=== PATIENT | male | born 1960 | race Caucasian/White ===

== ENCOUNTER 2018-07-25 17:10 | Inpatient (IN) | payer MEDICAID ==
--- NOTE | 2018-07-25 17:29 | EDPHY ---
General Time Seen by Provider: 07/25/18 17:14 Narrative: CLINICAL IMPRESSION: Congestive heart failure, shortness of breath ASSESSMENT/PLAN: 58-year-old male with a past medical history of nonischemic cardiomyopathy with reduced left ventricular systolic function and an EEG action fraction of 40 % presents to the emergency department after running out of his Lasix 2 weeks ago and experiencing increased shortness of breath and oxygen needed. Patient reports using 4 L of 0 2 at night but has been using this during the day over the last several days. He reports increased lower extremity edema, dyspnea on exertion and shortness of breath. He has no complaints of chest pain in the ED. No calf asymmetry erythema or warmth. Low clinical suspicion for DVT. No pleuritic chest discomfort. EKG read and interpreted by Dr. White, normal sinus rhythm, no acute ST or T-wave changes. Chest x-ray showing cardiomegaly with changes consistent with congestive heart failure. Elevated BNP. No renal insufficiency or electrolyte imbalance. No leukocytosis. Troponin negative. Patient was given IV Lasix in the emergency department. Case discussed with Dr. White and hospitalist for admission. He is established with Cardiology and CT surgery given moderate to severe aortic regurgitation but does not wish to pursue valve replacement. He was stabilized in the ED prior to admission. DIFFERENTIAL DX: Differential diagnosis includes but not limited to myocardial ischemia, CHF exacerbations, pulmonary embolus, chest wall pain, pleural inflammation, musculoskeletal chest wall pain, aortic aneurysm, and pulmonary infectious causes. ED PROCEDURES: See lab and/or imaging results below ED COURSE: 5:20 p.m.: Patient seen and assessed by myself. Currently on 4 L O2 by nasal cannula. No acute distress, no obvious significant respiratory difficulty. Plan for IV, labs, chest x-ray, EKG, cardiac enzymes, admission. 5:30 p.m.: Review of patient's most recent admission records from June of 2015 reveal a [facility] echo showing moderate to severe aortic insufficiency with dilated aortic arch, ejection fraction of 40%, severe aortic regurgitation and pulmonary hypertension. At the time of this admission note it was recommended that patient consider CT surgery consultation and note suggest the patient went home to think about this. He also appears to have had a cardiac catheterization in 2016 revealing minimal coronary luminal irregularities and was started on atorvastatin and baby aspirin daily. Cardiac diagnosis of nonischemic cardiomyopathy with reduced left ventricular systolic function. 6:20 p.m.: Lab studies show an elevated BNP. Chest x-ray suggestive of CHF. No renal insufficiency or significant electrolyte imbalance. EKG reviewed with Dr. White. Patient reports chest pain is only when he is exerting himself up the stairs and "can tell his pulse ox is low". He has no chest pain at rest and no pleuritic discomfort. He is currently chest pain-free. Troponin negative. Case reviewed with Dr. Abbasi for admission. Patient in agreement to this plan. CHIEF COMPLAINT: Shortness of breath HPI: 58-year-old male with past medical history of CHF, depression, chronic arthritis and degenerative disc disease presents to the emergency department complaining of shortness of breath x2 weeks after running out of his Lasix. Patient states he had not seen the prescribing physician in some time and therefore refills were not provided. He reports lower extremity edema, abdominal distention, shortness of breath and chest pain. He has home oxygen he normally wears only at night at 4 L but has been wearing this during the day. He reports his home pulse oximetry was reading as low as 70. He also reports that he sees a kidney doctor for "kidney failure" but is unable to tell me what his baseline creatinine is. He states he is still making urine although it is dark in estimates he has urinated 2-3 times today. He has not weighed himself. He does not report prior cardiac history including arrhythmia or previous [place]. He has been taking his other medication compliantly. He is a poor historian, cannot tell me if he has had an echocardiogram, cardiac catheterization, or because of his CHF. PAST MEDICAL HISTORY: CHF, degenerative disc disease, osteoarthritis, chronic depression See nurse/triage notes for additional history if applicable Pertinent Past Surgical History: None reported Family History: Noncontributory Social History: Lives alone, nonsmoker REVIEW OF SYSTEMS: All other systems negative Constitutional: No fever, no chills, appetite change. Eyes: No discharge, vision change ENT: No sore throat, congestion, ear pain. Cardiovascular: No chest pain, no palpitations. Respiratory: No cough, no shortness of breath. Gastrointestinal: No abdominal pain, no vomiting, diarrhea. Genitourinary: No hematuria, dysuria, flank pain, pelvic pain Musculoskeletal: No back pain, joint swelling, joint pain, myalgias. Skin: No rashes, color change. Neurological: No headache, dizziness, weakness. PHYSICAL EXAM: General Appearance: Alert, oriented, appropriate, overweight, cooperative, NAD , well hydrated, non-toxic appearing, tachycardic, tachypneic, hypertension, saturating 91% on 4 L, no hypoxia. HEENT: Oropharynx clear is no erythema or exudates, no tonsillar hypertrophy or asymmetry. Dentition without abnormality. Neck: Supple, nontender, no lymphadenopathy, no midline pain, FROM, no meningismus, no JVD. Respiratory: There are no retractions, lungs are clear to auscultation. Cardiac: Regular rate and rhythm, no murmurs or gallops. Gastrointestinal: Abdomen is soft, distended, nontender, bowel sounds normal, no guarding or focal peritoneal findings. Neurological: [ Alert and oriented x 3 Skin: Warm, dry, no rashes, no nodules on palpation. Musculoskeletal: [Extremities are symmetrical, full range of motion, no asymmetric calf tenderness erythema or warmth, no pitting edema although patient reports swelling to both lower extremities Psychiatric: Patient is oriented X 3, there is no agitation. MEDICAL DECISION MAKING: Patient was seen independently. Secondary supervising physician at time of evaluation was Dr White . Diagnosis: Congestive heart failure, shortness of breath . New, requires workup Summary: See Assessment and Plan for summary of ED visit Clinical lab tests: ordered / reviewed. Independent visualization of images, tracing, or specimens: Yes. Decision to obtain medical records or history from someone other than the patient: No Review / Summarize previous medical records: Reviewed past records Discussed patient with another provider: Dr. White Patient Progress: Improved, stable for discharge. - Diagnostics Imaging Results: Imaging Impressions Chest X-Ray 07/25/18 17:26 Impression: Mild cardiomegaly with possible early congestive heart failure. A component of underlying bronchitis and interstitial pneumonitis cannot be excluded. - History Smoking Status: Former smoker - Objective Vital Signs: Initial Vital Signs Temperature (C) 37 C 07/25/18 17:14 Heart Rate 110 H 07/25/18 17:14 Respiratory Rate 25 H 07/25/18 17:14 Blood Pressure 184/110 H 07/25/18 17:14 O2 Sat (%) 91 L 07/25/18 17:14 O2 Delivery Mode Nasal Cannula O2 (L/minute) 4 Allergies/Adverse Reactions: No Known Allergies Allergy (Verified 07/25/18 18:46) Home Medications: Medication Instructions Recorded Omeprazole 20 mg PO DAILY PRN 06/13/15 Sertraline HCl [Zoloft 100mg (*)] 100 mg PO DAILY 06/13/15 Atorvastatin Calcium [Lipitor 20 20 mg PO DAILY #30 tab 06/17/15 mg (*)] Lisinopril [Zestril 10 mg (*)] 10 mg PO DAILY #30 tab 06/17/15 Metoprolol Succinate Xr [Toprol Xl 50 mg PO DAILY #30 tab 06/17/15 50 mg (*)] Acetaminophen [Tylenol 325mg (*)] 325 - 650 mg PO Q6 PRN 07/25/18 Albuterol [Ventolin Hfa Inhaler] 1 - 2 puffs IH Q4-6PRN PRN 07/25/18 Aspirin EC [Aspirin EC 81 mg (*)] 81 mg PO DAILY 07/25/18 Furosemide [Lasix 40 MG (*)] 40 mg PO DAILY 07/25/18 Herbals/Supplements -Info Only 1 ea PO DAILY 07/25/18 Potassium Cl [Klor-Con 20 meq (*)] 20 meq PO DAILY 07/25/18 Laboratory Results: Laboratory Results 07/25/18 17:22 07/25/18 17:15 07/25/18 07/25/18 17:22 17:15 WBC 6.00 10^3/uL 10^3/uL (3.80-9.50) RBC 4.78 10^6/uL 10^6/uL (4.40-6.38) Hgb 12.7 g/dL L g/dL (13.7-17.5) Hct 40.1 % % (40.0-51.0) MCV 83.9 fL fL (81.5-99.8) MCH 26.6 pg L pg (27.9-34.1) MCHC 31.7 g/dL L g/dL (32.4-36.7) RDW 15.3 % H % (11.5-15.2) Plt Count 150 10^3/uL 10^3/uL (150-400) MPV 9.1 fL fL (8.7-11.7) Neut % (Auto) 75.0 % H % (39.3-74.2) Lymph % (Auto) 13.0 % L % (15.0-45.0) [place] % (Auto) 7.5 % % (4.5-13.0) Eos % (Auto) 2.0 % % (0.6-7.6) Baso % (Auto) 0.8 % % (0.3-1.7) Nucleat RBC Rel Count 0.0 % % (0.0-0.2) Absolute Neuts (auto) 4.50 10^3/uL 10^3/uL (1.70-6.50) Absolute Lymphs (auto) 0.78 10^3/uL L 10^3/uL (1.00-3.00) Absolute Monos (auto) 0.45 10^3/uL 10^3/uL (0.30-0.80) Absolute Eos (auto) 0.12 10^3/uL 10^3/uL (0.03-0.40) Absolute Basos (auto) 0.05 10^3/uL 10^3/uL (0.02-0.10) Absolute Nucleated RBC 0.00 10^3/uL 10^3/uL (0-0.01) Immature Gran % 1.7 % H % (0.0-1.1) Immature Gran # 0.10 10^3/uL 10^3/uL (0.00-0.10) Sodium 138 mEq/L mEq/L (135-145) Potassium 4.5 mEq/L mEq/L (3.5-5.2) Chloride 104 mEq/L mEq/L (97-110) Carbon Dioxide 21 mEq/l L mEq/l (22-31) Anion Gap 13 mEq/L mEq/L (6-14) BUN 14 mg/dL mg/dL (7-23) Creatinine 1.2 mg/dL mg/dL (0.7-1.3) Estimated GFR > 60 Glucose 120 mg/dL H mg/dL (70-100) Calcium 9.0 mg/dL mg/dL (8.5-10.4) NT-Pro-B Natriuret Pep 1390 pg/mL H pg/mL (0-125) Medications Given: Aspirin Buffered (Aspirin Ec) 81 mg PO DAILY [facility] Stop: 01/21/19 21:44 Last Admin: 07/25/18 22:34 Dose: 81 mg Atorvastatin Calcium (Lipitor) 20 mg PO DAILY [facility] Stop: 01/21/19 21:44 Last Admin: 07/25/18 22:34 Dose: 20 mg Lisinopril (Zestril) 10 mg PO DAILY [facility] Stop: 01/21/19 21:44 Last Admin: 07/25/18 22:34 Dose: 10 mg Metoprolol Succinate (Toprol Xl) 50 mg PO DAILY [facility] Stop: 01/21/19 21:44 Last Admin: 07/25/18 22:34 Dose: 50 mg Pantoprazole Sodium (Protonix) 40 mg PO DAILY PRN PRN Reason: Dyspepsia Stop: 01/21/19 21:07 Last Admin: 07/25/18 22:35 Dose: 40 mg Potassium Chloride (Klor-Con) 20 meq PO DAILY [facility] Stop: 01/21/19 21:44 Last Admin: 07/25/18 22:34 Dose: 20 meq Sertraline HCl (Zoloft) 100 mg PO DAILY [facility] Stop: 01/21/19 21:44 Last Admin: 07/25/18 22:34 Dose: 100 mg Discontinued Medications Furosemide (Lasix Injection) 40 mg IVP [facility] ONE Stop: 07/25/18 18:25 Last Admin: 07/25/18 18:32 Dose: 40 mg Departure - Departure Disposition: [facility] Clinical Impression: Congestive heart failure, Shortness of breath Condition: Fair
[2018-07-25 17:39] LABS: PLATELET COUNT 150 10^3/uL (150-400)
--- NOTE | 2018-07-25 18:23 | CPEKG ---
Test Reason : OPEN Blood Pressure : / mmHG Vent. Rate : 092 BPM Atrial Rate : 092 BPM P-R Int : 184 ms QRS Dur : 096 ms QT Int : 389 ms P-R-T Axes : 051 065 021 degrees QTc Int : 482 ms Sinus rhythm Borderline T abnormalities, anterior leads Borderline prolonged QT interval Confirmed by Sheryl Mendoza ([id number]) on 07/25/2018 6:23:22 PM Referred By: SHERYL MENDOZA Confirmed By:Sheryl Mendoza
[2018-07-25] MEDS ORDERED: FUROSEMIDE 40 MG/4 ML VIAL IVP ONE (18:24)
--- NOTE | 2018-07-25 19:41 | PDGENHP ---
History and Physical - Chief Complaint sob/increased o2 need/out of meds - History of Present Illness 58 yo M with PMH of NICM with most recent EF of 65% (previously 40) as well as VHD, moderate to severe AI, and chronic hypoxic respiratory failure presenting with increased sob, increased o2 needs, leg swelling and exertional chest pain for the last couple of weeks at least. Patient is a poor historian, but reports that he has not followed up with any of his doctors for quite some time, so long in fact that his PCP refused to refill his lasix until he came to see her. He did not do that and so has been out of lasix as well as his other medications for at least the last 2 weeks. He states he has not followed up with cardiology in a 'long time', though there is an echo report from Dr. Monzon from 08/2017. He notes that since being off of the lasix, his legs have been more swollen and he has been more sob. He has begun using oxygen at 4L during the day as well as at night and has seen his o2 as low as the 70s on RA. He has had chest pain intermittently that has been worsening recently. He states it is mostly right after he has been walking and he will notice it when he sits down, it has not been severe but he did not have it at all previously. He denies fevers or chills, cough or sputum production. He does wake up with more phlegm than normal and has wondered if he might have COPD. History Information - Allergies/Home Medication List Allergies/Adverse Reactions: No Known Allergies Allergy (Verified 07/25/18 18:46) Home Medications: Omeprazole 20 mg PO DAILY PRN 06/13/15 [Last Taken 07/24/18] Sertraline HCl [Zoloft 100mg (*)] 100 mg PO DAILY 06/13/15 [Last Taken 07/24/18] Acetaminophen [Tylenol 325mg (*)] 325 - 650 mg PO Q6 PRN 07/25/18 [Last Taken Unknown] Albuterol [Ventolin Hfa Inhaler] 1 - 2 puffs IH Q4-6PRN PRN 07/25/18 [Last Taken Unknown] Aspirin EC [Aspirin EC 81 mg (*)] 81 mg PO DAILY 07/25/18 [Last Taken 07/24/18] Furosemide [Lasix 40 MG (*)] 40 mg PO DAILY 07/25/18 [Last Taken 07/11/18] Herbals/Supplements -Info Only 1 ea PO DAILY 07/25/18 [Last Taken 07/24/18] Potassium Cl [Klor-Con 20 meq (*)] 20 meq PO DAILY 07/25/18 [Last Taken 07/24/18 ] I have personally reviewed and updated: family history, medical history, social history, surgical history - Past Medical History GERD, hypertension, hyperlipidemia, psychiatric history (depression, anxiety, ptsd, hx of SA) Additional medical history: VHD: moderate to severe aortic insufficiency. ascending aortic aneurysm. bicuspid aortic valve. NICM--EF previously 40%, improved to 65% 08/2017. gastric ulcer - Surgical History Additional surgical history: tonsillectomy. orthopedic surgery - Family History Positive for: non-pertinent - Social History Smoking Status: Former smoker Alcohol Use: Other (previously heavy) Drug Use: None Additional social history: lives independently, previously worked as a combo welder now on disability, has 2 kids, Review of Systems Review of Systems: ROS: 10pt was reviewed & negative except for what was stated in HPI & below Physical Exam Physical Exam: Temp Pulse Resp BP Pulse Ox 37.6 C 82 16 144/82 H 92 07/25/18 18:23 07/25/18 19:22 07/25/18 19:22 07/25/18 19:22 07/25/18 19:22 O2 (L/minute) 4 Constitutional: chronically ill appearing, obese Eyes: PERRL, anicteric sclera Ears, Nose, Mouth, Throat: moist mucous membranes, hearing normal Cardiovascular: regular rate and rhythym, systolic murmur, edema Respiratory: reduced air movement, inspiratory crackles, No no respiratory distress Gastrointestinal: normoactive bowel sounds, soft, non-tender abdomen Genitourinary: no bladder tenderness Skin: warm, normal color Musculoskeletal: full muscle strength Neurologic: AAOx3 Psychiatric: interacting appropriately, not anxious, not encephalopathic Lab Data & Imaging Review 07/25/18 17:22 07/25/18 17:15 WBC 6.00 10^3/uL (3.80-9.50) 07/25/18 17:22 RBC 4.78 10^6/uL (4.40-6.38) 07/25/18 17:22 Hgb 12.7 g/dL (13.7-17.5) L 07/25/18 17:22 Hct 40.1 % (40.0-51.0) 07/25/18 17:22 MCV 83.9 fL (81.5-99.8) 07/25/18 17:22 MCH 26.6 pg (27.9-34.1) L 07/25/18 17:22 MCHC 31.7 g/dL (32.4-36.7) L 07/25/18 17:22 RDW 15.3 % (11.5-15.2) H 07/25/18 17:22 Plt Count 150 10^3/uL (150-400) 07/25/18 17:22 MPV 9.1 fL (8.7-11.7) 07/25/18 17:22 Neut % (Auto) 75.0 % (39.3-74.2) H 07/25/18 17:22 Lymph % (Auto) 13.0 % (15.0-45.0) L 07/25/18 17: [place] % (Auto) 7.5 % (4.5-13.0) 07/25/18 17: Eos % (Auto) 2.0 % (0.6-7.6) 07/25/18 17: Baso % (Auto) 0.8 % (0.3-1.7) 07/25/18 17: Nucleat RBC Rel Count 0.0 % (0.0-0.2) 07/25/18 17: Absolute Neuts (auto) 4.50 10^3/uL (1.70-6.50) 07/25/18 17:22 Absolute Lymphs (auto) 0.78 10^3/uL (1.00-3.00) L 07/25/18 17: Absolute Monos (auto) 0.45 10^3/uL (0.30-0.80) 07/25/18 17:22 Absolute Eos (auto) 0.12 10^3/uL (0.03-0.40) 07/25/18 17:22 Absolute Basos (auto) 0.05 10^3/uL (0.02-0.10) 07/25/18 17:22 Absolute Nucleated RBC 0.00 10^3/uL (0-0.01) 07/25/18 17:22 Immature Gran % 1.7 % (0.0-1.1) H 07/25/18 17:22 Immature Gran # 0.10 10^3/uL (0.00-0.10) 07/25/18 17:22 Sodium 138 mEq/L (135-145) 07/25/18 17:15 Potassium 4.5 mEq/L (3.5-5.2) 07/25/18 17:15 Chloride 104 mEq/L (97-110) 07/25/18 17:15 Carbon Dioxide 21 mEq/l (22-31) L 07/25/18 17:15 Anion Gap 13 mEq/L (6-14) 07/25/18 17:15 BUN 14 mg/dL (7-23) 07/25/18 17:15 Creatinine 1.2 mg/dL (0.7-1.3) 07/25/18 17:15 Estimated GFR > 60 07/25/18 17:15 Glucose 120 mg/dL (70-100) H 07/25/18 17:15 Calcium 9.0 mg/dL (8.5-10.4) 07/25/18 17:15 POC Troponin I 0.02 ng/mL (0.00-0.08) 07/25/18 19:13 NT-Pro-B Natriuret Pep 1390 pg/mL (0-125) H 07/25/18 17:15 Visualized and Interpreted Chest x-ray results: Yes Chest X-Ray results: other (CM, early CHF, ? bronchitis) Visualized and Interpreted EKG results: Yes EKG Interpretation: Positive for: normal sinsus rhythm EKG additional interpertation: ? t wave abnormalities Assessment & Plan Assessment: CHF (congestive heart failure) (Acute) Shortness of breath (Acute) 58 yo M w/hx of NICM, VHD, chronic nocturnal hypoxia presenting with acute decompensation of chf and acute on chronic respiratory failure # acute decompensated chf: with previous systolic dysfunction that had normalized on last echo, does have e/o pulmonary edema and lower extremity edema in setting of medication non compliance. Started on IV lasix, monitoring I /Os, echo in am. Will initiate ischemic eval as next. BNP 1390 which is lower than previously actually, however at that time was in exacerbation as well. Followed by Nicol[facility], consult in am # chest pain: patient complaining of exertional chest pain that is new from prior, initial ecg non ischemic and trop negative, trend trops/ecgs, monitor on tele, echo and cardiology consult in am. # VHD: w/hx of rheumatic heart disease and moderate to severe AI, bicuspid aortic valve, currently volume overloaded as above, cards to see # ascending aortic aneurysm: has been followed by cardiology and at last echo was noted to be 4.6 cm # GERD/hx of gastric ulcer: continue PPI # PTSD/depression: continue home medications # hyperglycemia: mildly elevated, has not been typically in the past, trending # observation status Patient new to my care. Old records reviewed and summarized as above. Care plan reviewed with ER doctor as above.
[2018-07-25] MEDS ORDERED: ONDANSETRON 4 MG/2 ML VIAL IVP PRN (20:57)
[2018-07-25] MEDS ORDERED: HYDROmorphONE/DILAUDID 1 MG/ML INJ IVP PRN (20:57)
[2018-07-25] MEDS ORDERED: PROMETHAZINE HCL 25 MG/ML INJ IVP PRN (20:57)
[2018-07-25] MEDS ORDERED: ONDANSETRON DISINTEGRATING 4 MG TAB PO PRN (20:57)
[2018-07-25] MEDS ORDERED: ALBUTEROL 3 ML DEYVIAL IH PRN (20:57)
[2018-07-25] MEDS ORDERED: ACETAMINOPHEN 325 MG TAB PO PRN (20:57)
[2018-07-25] MEDS ORDERED: oxyCODONE IR 5 MG TAB PO PRN (20:57)
[2018-07-25] MEDS ORDERED: LORazepam 0.5 MG TAB PO PRN (20:57)
[2018-07-25] MEDS ORDERED: HYDROCODONE/APAP 5/325 TAB PO PRN (20:57)
[2018-07-25] MEDS ORDERED: ALBUTEROL INH PREPACK MDI TAKEHOME PRN (21:00)
[2018-07-25] MEDS ORDERED: PANTOPRAZOLE SODIUM 40 MG TAB PO PRN (21:08)
[2018-07-25] MEDS: LISINOPRIL 10 MG TAB PO SCH (22:34)
[2018-07-25] MEDS: POTASSIUM CL 20 MEQ TAB PO SCH (22:34)
[2018-07-25] MEDS: METOPROLOL SUCCINATE XR 50 MG TAB PO SCH (22:34)
[2018-07-25] MEDS: SERTRALINE HCL 100 MG TAB PO SCH (22:34)
[2018-07-25] MEDS: ATORVASTATIN CALCIUM 20 MG TAB PO SCH (22:34)
[2018-07-25] MEDS: ASPIRIN EC 81 MG TAB PO SCH (22:34)
[2018-07-26 04:17] LABS: PLATELET COUNT 159 10^3/uL (150-400)
[2018-07-26] MEDS: ATORVASTATIN CALCIUM 20 MG TAB PO SCH (08:55)
[2018-07-26] MEDS: SERTRALINE HCL 100 MG TAB PO SCH (08:56)
[2018-07-26] MEDS: ASPIRIN EC 81 MG TAB PO SCH (08:56)
[2018-07-26] MEDS: LISINOPRIL 10 MG TAB PO SCH (08:56)
[2018-07-26] MEDS: ENOXAPARIN 40 MG/0.4 ML SYR SC SCH (08:56)
[2018-07-26] MEDS: POTASSIUM CL 20 MEQ TAB PO SCH (08:56)
[2018-07-26] MEDS: FUROSEMIDE 20 MG/2 ML VIAL IVP SCH ×2 (08:56→15:22)
[2018-07-26] MEDS: METOPROLOL SUCCINATE XR 50 MG TAB PO SCH (08:56)
--- NOTE | 2018-07-26 09:06 | SOAPPROG ---
[facility] Progress Note Assessment/Plan: Assessment: Cardiology new patient consultation. Evaluate man with decompensated CHF 58 y/o man with following cardiac and medical issues: --congenital bicuspid aortic valve with moderate to severe AI --thoracic aortic aneurysm 4.5cm --CHF LVEF 53% --depression and anxiety --chronic back pain --medical non-compliance Last cardiac cath 07/16 showed mild CAD, LVED 40% and severe AI. Echo 08/18 showed LVEF 65%, LVEDD 5.8cm, bicuspid aortic valve with no , moderate AI, mild MR and thoracic aorta 4.4cm. He last saw Dr. Monzon his [facility] 02/[facility]. He at his best has NXI at 1-2 blocks limited by back pain and NIX. He ran out of his Lasix two weeks ago. Yesterday he had NIX at 10- 20ft around his house, nightly PND and orthopnea and CP. He was given IV lasix last night upon admission and has diuresed 4 liters overnight. Tentative echo today with LVEF 53%, severe AI and thoracic aorta 4.5cm and mild RV enlargement. PLAN: 1)continue IV lasix and other meds. 2)will review echo done this morning in full. 3)may need repeat L/R cardiac cath Friday and CT surgery evaluation for BIOAVR and thoracic aortic aneurysm repair. Thanks. Will follow with you closely. 07/26/18 09:00 Objective: Vital Signs Temp Pulse Resp BP Pulse Ox 36.9 C 79 18 131/65 H 91 L 07/26/18 08:00 07/26/18 08:00 07/26/18 08:00 07/26/18 08:00 07/26/18 08:00 Laboratory Results 07/26/18 03:44 07/26/18 03:44 07/25/18 07/26/18 07/27/18 05:59 05:59 05:59 Intake Total 400 Output Total 2800 400 Balance -2400 -400 ICD10 Worksheet Patient Problems: Problems Problem Status Onset CHF (congestive heart failure) Acute Shortness of breath Acute Cough Acute Hypoxemia requiring supplemental oxygen Acute Pulmonary edema Acute
--- NOTE | 2018-07-26 10:38 | ECHO ---
[email or web address] [address] Main: [phone] Echocardiography Examination Transthoracic Name: COLT GUPTA MR#: [id number] Study Date: 07/26/2018 Study Time: 08:19 AM Date of : 1960 Age: 58 year(s) Height: 180.3 cm (71 in.) Weight: 113.4 kg (250 lb.) BSA: 2.32 m2 Gender: Male Examination: Echo Contrast: Image Quality: Rhythm: Normal sinus rhythm Heart Rate: 69 bpm BP: 131 mmHg/69 mmHg Indication: Shortness of breath Procedure Staff Referring Physician: Telephonic Nurse Case Manager: Brenden Richards RDCS Reading Physician: Fred Jenkins MD Requesting Provider: Ordering Physician: Luke Quintana Indication: Shortness of breath Measurements Chambers AV/MV Label Value Normal Value Label Value Normal Value LVOT Vmax 0.76 m/s (0.7m/s - 1.1m/s) AR PHT 0.49 s LVOTd 2.2 cm (1.9cm - 2.1cm) AR PHT 487 ms LVOT VTI 21.9 cm (18cm - 22cm) AR Vena contracta 0.6 cm LVDd, MM 6.2 cm (4.2cm - 5.9cm) AR Vmax 4.6 m/s LVDd, 2D 5.8 cm (4.2cm - 5.9cm) AR VTI 214 cm LVDs, MM 4.5 cm (2cm - 3.8cm) AV PGmax 11 mmHg LVDs, 2D 4 cm (2.1cm - 4cm) AV PGmean 6 mmHg IVSd, MM 1.3 cm (0.6cm - 0.9cm) AV Vmax 1.66 m/s IVSd, 2D 0.9 cm (0.6cm - 1.1cm) LINDY (Vmax) 1.7 cm2 LVPWd, MM 1.3 cm (0.6cm - 1cm) LINDY (VTI) 2.2 cm2 LVPWd, 2D 1.1 cm (0.6cm - 1cm) MV E Vmax 0.71 m/s LVEF, 2D 56 % (54% - 74%) MV A Vmax 0.59 m/s LVOT PGmean 1 mmHg MV E/A 1.2 LVOT Vmean 0.55 m/s MV E/E' lateral 13.9 LA Volume, BP 78 ml (18ml - 58ml) MV E/E' septal 10.4 (0.5 - 1.7) LAESV index, BP 33.6 ml/m2 MV E' septal 0.07 m/s Additional Vessels MV VTI 17.9 cm Label Value Normal Value MVA D (continuity eq.) 4.6 cm2 AoAsc 4.4 cm MV PGmax 3 mmHg Patient: COLT GUPTA Study Date: 07/26/2018 Page 1 of 3 08:19 AM AoRoot, MM 4.1 cm (2.2cm - 3.7cm) MV PGmean 1 mmHg MV E' lateral 0.05 m/s MV E/E' mean 11.83 MV E' mean 0.06 m/s TV/PV Label Value Normal Value RA Pressure 5 mmHg RVSP 58 mmHg TR Pmax 53 mmHg TR Vmax 3.63 m/s PV PGmax 3 mmHg PV Vmax, Caliper 0.9 m/s (0.6m/s - 0.9m/s) Conclusions Normal LV systolic function, LVEF 50-55%. Grade 2 LV diastolic dysfunction. Mild concentric LV hypertrophy. RV size at upper limits of normal. Mildly to moderately reduced RV function. Flattened interventricular septum consistent with RV pressure and/or volume overload. Mild tricuspid regurgitation. Moderate pulmonary hypertension, estimated RVSP 58 mmHg. Dilated aortic root and ascending aorta. Ascending aorta measures 4.4 cm. Findings Left Ventricle: Left ventricle is normal in size. Low normal left ventricular systolic function. The EF is visually estimated to be 50 %. EF range is estimated at 50 % - 55 %. There is mild concentric left ventricular hypertrophy. Grade II Diastolic Dysfunction. Right Ventricle: Upper normal size right ventricle. Mildly to moderately reduced RV function. Flattened interventricular septum consistent with right ventricular pressure and/or volume overload Left Atrium: The left atrium is normal in size. Right Atrium: The right atrium is normal in size. Mitral Valve: Mitral valve appears structurally normal. Trivial mitral regurgitation. Aortic Valve: Moderate to severe aortic regurgitation is present. There is no aortic stenosis. The aortic valve is functionally bicuspid. Tricuspid Valve: Mild tricuspid regurgitation. Right Ventricular systolic pressure is measured at 58 mmHg. Pulmonary artery pressure moderately increased. Pulmonic Valve: Pulmonic leaflets are normal in appearance and function. No pulmonic valve regurgitation is evident. Aorta: The aortic root is mild to moderately dilated. The aortic root size in M-mode measures 4.1 cm. The ascending aorta measures 4.4 cm. Aorta Measurements AoRoot, MM is 4.1 cm. Pericardium: No pericardial effusion. Exam Details Patient: COLT GUPTA Study Date: 07/26/2018 Page 2 of 3 08:19 AM Procedure Ordered: Echo (No Signature Object) Patient: COLT GUPTA Study Date: 07/26/2018 Page 3 of 3 08:19 AM [id number]
--- NOTE | 2018-07-26 13:23 | HOSPPROG ---
Hospitalist Progress Note Assessment/Plan: CHF (congestive heart failure) (Acute) Shortness of breath (Acute) 58 yo M w/hx of NICM, VHD, chronic nocturnal hypoxia presenting with acute decompensation of chf and acute on chronic respiratory failure # acute decompensated chf: with previous systolic dysfunction that had normalized on last echo, does have e/o pulmonary edema and lower extremity edema in setting of medication non compliance. - Started on IV lasix, monitoring I/Os, echo in am. - Followed by Nicolás, cardiology consulted this AM recommend repeat TTE, continue IV Lasix # chest pain: patient complaining of exertional chest pain that is new from prior, initial ecg non ischemic and trop negative - monitor on tele, echo and cardiology consult as above # VHD: w/hx of rheumatic heart disease and moderate to severe AI, bicuspid aortic valve, currently volume overloaded as above - Discussed with Dr. Perez this AM, who is to review TTE this AM, he reports patient may need repeat L/R cardiac cath and CT surgery evaluation for BIOAVR and thoracic aortic aneurysm repair pending TTE results # ascending aortic aneurysm: has been followed by cardiology and at last echo was noted to be 4.6 cm, see above # GERD/hx of gastric ulcer: continue PPI # PTSD/depression: continue home medications # hyperglycemia: mildly elevated, has not been typically in the past, trending # Admission status Patient new to my care. Old records reviewed and summarized as above. Care plan reviewed with ER doctor as above. Subjective: Pt reports improvement in breathing and swelling this AM Objective: Vital Signs Temp Pulse Resp BP Pulse Ox 36.6 C 72 18 113/68 92 07/26/18 11:51 07/26/18 11:51 07/26/18 11:51 07/26/18 11:51 07/26/18 11:51 Laboratory Results 07/26/18 03:44 07/26/18 03:44 07/25/18 07/26/18 07/27/18 05:59 05:59 05:59 Intake Total 400 Output Total 2800 1500 Balance -2400 -1500 - Physical Exam Constitutional: no apparent distress, obese Eyes: PERRL Ears, Nose, Mouth, Throat: moist mucous membranes Cardiovascular: regular rate and rhythym, edema Respiratory: no respiratory distress, reduced air movement Gastrointestinal: soft, non-tender abdomen Skin: warm Musculoskeletal: full muscle strength Neurologic: AAOx3 Psychiatric: interacting appropriately ICD10 Worksheet Patient Problems: Problems Problem Status Onset CHF (congestive heart failure) Acute Shortness of breath Acute Cough Acute Hypoxemia requiring supplemental oxygen Acute Pulmonary edema Acute
--- NOTE | 2018-07-26 14:58 | GCON ---
[f rep st] CONSULTATION CARDIOLOGY NEW PATIENT CONSULT DATE OF CONSULTATION: 07/26/2018 REASON FOR CONSULTATION: Shortness of breath at 10-20 feet and nightly PND orthopnea consistent with decompensated heart failure. HISTORY OF PRESENT ILLNESS: The patient is a 58-year-old gentleman with the following cardiac and medical problems: 1. Congenital bicuspid aortic valve with chronic severe aortic insufficiency. 2. CHF with an LVEF of 53%. 3. Thoracic aortic aneurysm measuring 4.5 cm. 4. Significant depression and anxiety. 5. Chronic back pain. 6. Medical noncompliance. The patient had a heart catheterization in July of 2015 which demonstrated mild nonobstructive coronary disease with an LVEF of 40% and severe aortic insufficiency. An echo done in August of 2017 demonstrated an LVEF of 65% with an LVEDD of 5.8 cm and normal right ventricular function. He had a bicuspid aortic valve with no aortic stenosis and moderate aortic insufficiency. There was mild mitral regurgitation and trivial tricuspid insufficiency with an estimated PA pressure of 41 mmHg and a thoracic aorta measuring 4.6 cm. It has been 2-1/2 years since he saw his clinic air marshal, Dr. Monzon. At baseline at his best he can walk about 1-2 blocks, stopping secondary to chronic back pain and shortness of breath. He ran out of his Lasix 2 weeks ago and was admitted yesterday after presenting to the emergency room with 5-6 days of nightly PND and orthopnea and dyspnea on exertion at 10-20 feet walking around his house. He has some mild sharp chest pain. He reports no fevers, cough, or sputum production. He was given IV Lasix last night and has already diuresed 4 L and is feeling better. PAST MEDICAL HISTORY: As per HPI. PAST SURGICAL HISTORY: None. CURRENT MEDICATIONS: Zoloft 100 mg daily, KCl 20 mEq daily, aspirin 81 mg per day, atorvastatin 20 mg per day, Lovenox 40 mg subcu daily, Lasix 20 mg IV twice daily, lisinopril 10 mg per day, Toprol-XL 50 mg daily. ALLERGIES: No known drug allergies. SOCIAL HISTORY: The patient is single and lives by himself in a house here in [place]. He denies tobacco use and has moderate alcohol use on the weekends. FAMILY HISTORY: Unremarkable for premature coronary artery disease or bicuspid aortic valve disease. REVIEW OF SYSTEMS: The patient reports no TIA or CVA symptoms. He has no GI bleed symptoms such as hematemesis, melena, or bright red blood per rectum. Rest of 10-point review of systems is negative. PHYSICAL EXAM: VITAL SIGNS: Afebrile, pulse 79 and regular, blood pressure 131 /65, respirations 20, 3 L/minute, 91%. Weight 112.4 kg. GENERAL: A moderately obese gentleman in no acute distress without chest pain or using accessory respiratory muscles. EYES: Pupils equal, reactive to light. ENT: Oral mucosa with no cyanosis. NECK: Jugular venous pressure to 8-9 cm. Carotid pulses 2+ bilaterally with no obvious bruits. LUNGS: Clear to auscultation bilaterally without rales, rhonchi, or wheezing. HEART: Slightly enlarged PMI. Regular rate and rhythm with 1/6 diastolic murmur. No S3 is heard. ABDOMEN: Exam is soft and nontender. No hepatosplenomegaly. No guarding or rebound or ascites. EXTREMITIES: 2+ peripheral pulses including femoral and pedal pulses. No edema noted. MUSCULOSKELETAL: No scoliosis. NEURO: Normal affect and mood. NECK: No nuchal rigidity. SKIN: No bleeding or cyanosis. LABS: White count 6.5, hematocrit 41, platelets 159,000 MCV 84, sodium 135, potassium 4.3, chloride 105, bicarb 22, BUN 16, creatinine 1.2, glucose 89, troponin 0.013. NT proBNP level 1390. IMPRESSION: 58-year-old gentleman with congenital bicuspid aortic valve with severe aortic insufficiency and congestive heart failure with an LVEF of 53% with thoracic aortic aneurysm 4.5 cm and medical noncompliance. He is clinically improving, but still probably moderate hypervolemic. A bedside echo was done this morning which I have tentatively looked at and shows his EF is 53 % with severe aortic insufficiency and a thoracic aorta of 4.5 cm. He is right on the cusp of needing surgery with an aortic valve replacement and thoracic aortic aneurysm repair. PLAN: 1. Continue current medications as he is diuresing well. 2. We will formally read full echo. 3. If he needs a referral for cardiac surgery, would recommend an updated left and right heart catheterization during this hospitalization. 4. Spent a lot of the time talking with the patient about need for regular medical appointments and more compliance. Thank you for allowing me to participate in the care of the patient. Cardiology service will follow along closely with you during his hospitalization. /[id number]/MODL MTDD
--- NOTE | 2018-07-26 22:41 | PDMN ---
Medical Necessity Medical necessity: Pt meets IP criteria as of 07/26/2018 per and MCG M-190 ( Heart Failure); los > 2 mn for ongoing tx and management of acute decompensated chf with pulmonary edema and lower extremity edema as well as chest pain and VHD ; requiring IV diuretics, strict I & O monitoring, echo, cardiology consultation , and cardiac monitoring . Hx AAA, GERD, PTSD, and hyperglycemia.
--- NOTE | 2018-07-27 09:10 | SOAPPROG ---
WILLIAM Progress Note Assessment/Plan: Assessment: 58 y/o man with following cardiac and medical issues: --congenital bicuspid aortic valve with moderate to severe AI --thoracic aortic aneurysm 4.5cm --CHF LVEF 53% --depression and anxiety --chronic back pain --medical non-compliance Last cardiac cath 07/16 showed mild CAD, LVED 40% and severe AI. Echo yesterday shows LVEF has decreased from 65% to 53%, new RV enlargement and RV dysfunction , severe AI and thoracic aorta 4.5cm. He is tired and fatigued and is hypoxic. I am concerned his chronic severe is causing biventricular CHF. REC: 1)stop IV lasix and KCL 2)rest of meds without changes. 3)L/R cardiac cath tomorrow (R/B/A discussed with patient and he wishes to proceed) then have CT surgery evaluate for BioAVR and thoracic aortic aneursym repair this hospitalization. 07/27/18 09:04 Subjective: He feels about the same. Denies CP, PND or palpitations. He is short of breath and fatigued. Objective: Vital Signs Temp Pulse Resp BP Pulse Ox 36.7 C 67 18 121/71 H 96 07/27/18 07:10 07/27/18 07:10 07/27/18 07:10 07/27/18 07:10 07/27/18 07:10 Laboratory Results 07/27/18 03:40 07/26/18 07/27/18 07/28/18 05:59 05:59 05:59 Intake Total 2580 Output Total 2400 Balance 180 Physical Exam - Physical Exam General Appearance: alert EENT: normal ENT inspection Neck: full range of motion Respiratory: lungs clear Cardiac/Chest: regular rate, rhythm, systolic murmur (1-2/6 diastolic heart murmur heard), No gallop, No JVD Peripheral Pulses: 2+: carotid (R), carotid (L), femoral (R), femoral (L), dorsalis-pedis (R), dorsalis-pedis (L) Abdomen: non-tender, No guarding, No rebound Skin: warm/dry Extremities: No pedal edema Neuro/Psych: alert ICD10 Worksheet Patient Problems: Problems Problem Status Onset CHF (congestive heart failure) Acute Shortness of breath Acute Cough Acute Hypoxemia requiring supplemental oxygen Acute Pulmonary edema Acute
[2018-07-27] MEDS ORDERED: NITROGLYCERIN 0.4 MG BTL SL PRN (09:12)
[2018-07-27] MEDS ORDERED: TEMAZEPAM 15 MG CAP PO PRN (09:12)
[2018-07-27] MEDS ORDERED: ACETAMINOPHEN 325 MG TAB PO PRN (09:12)
[2018-07-27] MEDS: ATORVASTATIN CALCIUM 20 MG TAB PO SCH (09:27)
[2018-07-27] MEDS: LISINOPRIL 10 MG TAB PO SCH (09:27)
[2018-07-27] MEDS: ASPIRIN EC 81 MG TAB PO SCH (09:27)
[2018-07-27] MEDS: ENOXAPARIN 40 MG/0.4 ML SYR SC SCH (09:27)
[2018-07-27] MEDS: METOPROLOL SUCCINATE XR 50 MG TAB PO SCH (09:29)
[2018-07-27] MEDS: SERTRALINE HCL 100 MG TAB PO SCH (09:30)
[2018-07-27 11:08] VITALS: BP 118/92
[2018-07-27] MEDS: FUROSEMIDE 20 MG/2 ML VIAL IVP SCH (11:26)
[2018-07-27] MEDS: POTASSIUM CL 20 MEQ TAB PO SCH (11:26)
--- NOTE | 2018-07-27 12:04 | ASMTCMCOM ---
CM Note CM Note Notes: Plan of care reviewed in rounds. 58 year old patient who ran out of his diuretics but was reluctant to see physiican as required to get a refill. He left AMA. Plan: None, patient left AMA. Date Signed: 07/27/2018 12:04 PM Electronically Signed By:Alejandrina Ortiz RN
--- NOTE | 2018-07-27 15:24 | PDDCSUM ---
Discharge Summary Discharge Summary: Date of Admission: 07/25/2018 Date of Discharge AMA: 07/27/2018 Consults: Cardiology Procedures: TTE, CXR, EKG Followup: Cardiology Hospital Course Problem List: 58 yo M w/hx of NICM, VHD, chronic nocturnal hypoxia presenting with acute decompensation of chf and acute on chronic respiratory failure # acute decompensated chf: with previous systolic dysfunction that had normalized on last echo, does have e/o pulmonary edema and lower extremity edema in setting of medication non compliance. - Started on IV lasix 40 mg IV BID with net negative 1.3 L over past 24 hours - Patient had worsening of Cr this AM with diuresis, from baseline of 1.2->1.4 - Discussed with Dr. Barakat who recommended holding IV lasix - Plan was to proceed with RHC/LHC tomorrow AM to further evaluate and redose Lasix as needed pending those results - TTE during admission showed LVEF low normal 50%, Grade II Diastolic Dysfunction # VHD: w/hx of rheumatic heart disease and moderate to severe AI, bicuspid aortic valve, currently volume overloaded as above - TTE performed during this admission showing Mod to severe AR - Per Dr. Perez plan for L/R cardiac cath then have CT surgery evaluate for BioAVR and thoracic aortic aneurysm repair this hospitalization however patient left AMA prior to having this w/u performed # chest pain: patient complaining of exertional chest pain that is new from prior, initial ecg non ischemic and trop negative # ascending aortic aneurysm: has been followed by cardiology and at last echo was noted to be 4.6 cm, see above # GERD/hx of gastric ulcer: continue PPI # PTSD/depression: continue home medications # hyperglycemia: mildly elevated, has not been typically in the past, trending Patient very upset morning of AMA Discharge that Lasix therapy was discontinued given the fact that he presented to the hospital because he wasn't able to obtain that medication as an outpatient. I explained to him that this was a direct recommendation from Cardiology as we saw a worsening of Cr overnight with diuresis so we would hold Lasix for 24 hours until after LHC/RHC able to be performed and guide further diuretic therapy with those results. Patient reiterated that he was here receive Lasix and we were holding them. I explained we would like to proceed with RHC/LHC to further inform our diuretic therapy moving forward and he also has valvular heart disease that is contributing to his current condition that needs to be further evaluated and managed. I discussed case with Dr. Barakat who was willing to give patient 20 mg IVP Lasix if patient agreeable to stay. I reiterated that he is very much at risk for worsening of his condition and possible if leaving AMA, he understood these risks and decided to leave AMA.
[2018-07-28] MEDS ORDERED: FAMOTIDINE 20 MG TAB PO ONE (06:00)
[2018-07-28] MEDS ORDERED: diphenhydrAMINE 25 MG CAP PO ONE (06:00)
[2018-07-28] MEDS ORDERED: NS 1,000 ML IV ONE (06:00)
[2018-07-28] MEDS ORDERED: DIAZEPAM 5 MG TAB PO ONE (06:00)
--- NOTE | 2018-07-31 11:05 | CPEKG ---
Test Reason : OPEN Blood Pressure : / mmHG Vent. Rate : 064 BPM Atrial Rate : 064 BPM P-R Int : 171 ms QRS Dur : 094 ms QT Int : 442 ms P-R-T Axes : 014 079 071 degrees QTc Int : 456 ms Sinus rhythm Abnormal T, consider ischemia, anterior leads Confirmed by Sameer Johnson ([id number]) on 07/31/2018 11:05:26 AM Referred By: Luke Quintana Confirmed By:Sameer Johnson
== END 2018-07-27 12:01 | disposition left against medical advice (07) | DRG 194 ==
LOC: EDUNIT# → F2W 19:43 → OBSVTOIN 07-26 13:40
PROVIDERS: ADMIT Internal Medicine; ATTEND Internal Medicine
DX: I50.20 Unspecified systolic (congestive) heart failure (principal); J96.20 Acute and chronic respiratory failure, unspecified whether with hypoxia or hypercapnia; I71.2 Thoracic aortic aneurysm, without rupture; I25.10 Atherosclerotic heart disease of native coronary artery without angina pectoris; K21.9 Gastro-esophageal reflux disease without esophagitis; M54.9 Dorsalgia, unspecified; F41.8 Other specified anxiety disorders; Z99.81 Dependence on supplemental oxygen; Z91.19 Patient's noncompliance with other medical treatment and regimen; Z87.11 Personal history of peptic ulcer disease; Z87.891 Personal history of nicotine dependence
CPT/HCPCS: 84484-ER; 96374; 97162-GP; 97165-GO; 97535-GO; G0378; J1650; J1940